=== PATIENT | female | born 1970 | race Hispanic/Latino ===

== ENCOUNTER → 2023-04-16 | Emergency (ER) | payer SELFPAY ==
[~2023-04-16] MED LIST: NA CHLORIDE 0.9% 1,000 ML ONE
[2023-04-16 15:40] LABS: Absolute Lymphocytes (CBC) 1.6 K/uL (0.7-4.9); Hematocrit 40.2 % (36.0-45.0); Lymphocytes % 23.1 % (15.3-44.8); MCV 93.7 fL (80-100); MPV 9.9 fL (7.6-11.3); Platelets 232 thou/uL (152-406); RBC Red Blood Cell Count 4.29 M/uL (3.86-4.86)
[2023-04-16 15:52] LABS: Potassium 4.1 mEq/L (3.5-5.1)
--- NOTE | 2023-04-16 15:55 | ER ---
Nurse's Notes [facility] Name: Mary Kate Herrera Age: 53 yrs Sex: Female : 1970 Arrival Date: 04/16/2023 Time: 14:35 Bed DX3 Private MD: Diagnosis: Diabetes mellitus due to underlying condition with hyperglycemia Presentation: 04/16 14:53 Chief complaint: Patient states: she was sent by the clinic for a FSBS of 405. patient ap3 denies any other symptoms at this time. patient was recently diagnosed with DM yesterday. Coronavirus screen: At this time, the client does not indicate any symptoms associated with coronavirus-19. Ebola Screen: No symptoms or risks identified at this time. Initial Sepsis Screen: Does the patient meet any 2 criteria? No. Patient's initial sepsis screen is negative. Does the patient have a suspected source of infection? No. Patient's initial sepsis screen is negative. Risk Assessment: Do you want to hurt yourself or someone else? Patient reports no desire to harm self or others. Onset of symptoms was April 16, 2023. 14:53 Method Of Arrival: Ambulatory ap3 14:53 Acuity: HEMA 3 ap3 Triage Assessment: 14:55 General: Appears in no apparent distress. Behavior is calm, cooperative, appropriate ap3 for age. Pain: Denies pain. Neuro: Level of Consciousness is awake, alert, obeys commands, Oriented to person, place, time, situation. Cardiovascular: Patient's skin is warm and dry. Respiratory: Airway is patent Respiratory effort is even, unlabored, Respiratory pattern is regular, symmetrical. 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 Flu vaccine is not up to date. - Social history:: Smoking status: Patient denies any tobacco usage or history of. Screenin:55 [facility] ED Fall Risk Assessment (Adult) History of falling in the last 3 months, ap3 including since admission No falls in past 3 months (0 pts). Abuse screen: Denies threats or abuse. Nutritional screening: No deficits noted. Tuberculosis screening: No symptoms or risk factors identified. Vital Signs: 14:53 BP 165 / 106; Pulse 78; Resp 17; Temp 97.7; Pulse Ox 100% ; Weight 96.16 kg; Height 5 ap3 ft. 1 in. ; 14:53 Body Mass Index 40.06 (96.16 kg, 154.94 cm) ap3 ED Course: 14:41 Patient arrived in ED. kj1 14:42 Donna Garnica [facility]C [facility]. kb 14:42 Austin Watters MD is Attending Physician. kb 14:54 Triage completed. ap3 14:55 Arm band placed on left wrist. ap3 15:23 Inserted saline lock: 20 gauge in left antecubital area, using aseptic technique. Blood as6 collected. 16:03 Bed in low position. Call light in reach. Provided Education on: follow up. as6 16:03 No provider procedures requiring assistance completed. IV discontinued, intact, as6 bleeding controlled, No redness/swelling at site. Pressure dressing applied. Administered Medications: 15:23 Drug: NS 0.9% IV 1000 ml IV at 1000 ml once Route: IV; Rate: 1000 ml; Site: left as6 antecubital; 16:02 Follow up: Response: No adverse reaction; IV Status: Completed infusion; IV Intake: as6 1000ml Medication: 16:03 VIS not applicable for this client. as6 Intake: 16:02 IV: 1000ml; Total: 1000ml. as6 Outcome: 15:55 Discharge ordered by . kb 16:03 Discharged to home ambulatory, as6 16:03 Condition: stable 16:03 Discharge instructions given to patient, Instructed on discharge instructions, follow up and referral plans. Demonstrated understanding of instructions, follow-up care, 16:03 Patient left the ED. as6 Signatures: Donna Garnica FNP-C FNP-Ckb Prokisch, Amanda RN RN ap3 Lynne Garnica kj1 Salomon Tejada RN RN as6
--- NOTE | 2023-04-16 15:55 | EDPHYS ---
Physician Documentation [facility] Name: Mary Kate Herrera Age: 53 yrs Sex: Female : 1970 Arrival Date: 04/16/2023 Time: 14:35 Bed DX3 Private MD: ED Physician Austin Watters HPI: 04/16 15:29 This 53 yrs old Female presents to ER via Ambulatory with complaints of High kb Blood Sugar. 15:29 Patient is a 53-year-old female who was diagnosed with diabetes yesterday at the [facility]. Her labs came back today with a sugar of 404 so she was told to come to the emergency room for evaluation. Patient reports slight lightheadedness but otherwise no other symptoms. Denies polyuria, polydipsia, polyphagia, nausea and vomiting. 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 Flu vaccine is not up to date. - Social history:: Smoking status: Patient denies any tobacco usage or history of. ROS: 15:29 Constitutional: Negative for fever, chills, and weight loss, kb 15:29 Neuro: Positive for lightheaded, 15:29 All other systems are negative, Exam: 15:29 Constitutional: This is a well developed, well nourished patient who is awake, alert, kb and in no acute distress. Head/Face: Normocephalic, atraumatic. ENT: Moist Mucous membranes Cardiovascular: Regular rate Respiratory: Respirations even and unlabored. No increased work of breathing. Talking in full sentences Abdomen/GI: Soft, non-tender. No distention Skin: Warm, dry with normal turgor. Normal color. MS/ Extremity: Pulses equal, no cyanosis. Neurovascular intact. Full, normal range of motion. Neuro: Awake and alert, GCS 15, oriented to person, place, time, and situation. Moves all extremities. Normal gait. Vital Signs: 14:53 BP 165 / 106; Pulse 78; Resp 17; Temp 97.7; Pulse Ox 100% ; Weight 96.16 kg; Height 5 ap3 ft. 1 in. ; 14:53 Body Mass Index 40.06 (96.16 kg, 154.94 cm) ap3 MDM: 14:42 Patient medically screened. kb 15:03 Data reviewed: vital signs, nurses notes. External Records Reviewed: Outpatient labs: kb CMP results from [facility] done yesterday reviewed. . 15:30 Differential diagnosis: DKA, hyperglycemia, new onset diabetes. kb 15:55 Counseling: I had a detailed discussion with the patient and/or guardian regarding the kb historical points, exam findings, and any diagnostic results supporting the discharge/admit diagnosis, lab results, the need for outpatient follow up, a family practitioner, to return to the emergency department if symptoms worsen or persist or if there are any questions or concerns that arise at home. 04/16 14:59 Order name: CBC with Diff; Complete Time: 15:46 kb 04/16 14:59 Order name: Basic Metabolic Panel; Complete Time: 15:53 kb 04/16 15:04 Order name: Glucose, Ancillary Testing; Complete Time: 15:05 EDMS 04/16 14:59 Order name: IV Start; Complete Time: 15:23 kb Administered Medications: 15:23 Drug: NS 0.9% IV 1000 ml IV at 1000 ml once Route: IV; Rate: 1000 ml; Site: left as6 antecubital; 16:02 Follow up: Response: No adverse reaction; IV Status: Completed infusion; IV Intake: as6 1000ml Disposition Summary: 04/16/23 15:55 Discharge Ordered Notes: Location: Home kb Condition: Stable kb Diagnosis - Diabetes mellitus due to underlying condition with hyperglycemia kb Followup: kb - With: Emergency Department - When: As needed - Reason: Worsening of condition Followup: kb - With: Private Physician - When: 2 - 3 days - Reason: Recheck today's complaints, Continuance of care, Re-evaluation by your physician Discharge Instructions: - Discharge Summary Sheet kb - Hyperglycemia kb - Type 2 Diabetes Mellitus, Diagnosis, Adult, [id number] kb Forms: - Medication Reconciliation Form kb - Thank You Letter kb - Antibiotic Education kb - Prescription Opioid Use kb - Patient Portal Instructions kb - Leadership Thank You Letter kb Signatures: Dispatcher [employer] EDDonna Jennings FNP-C [employer]-Ckb Nicci Ramires, RN RN ap3 Salomon Tejada, RN RN as6
== END ==
LOC: ER 14:35
DX: E11.65 Type 2 diabetes mellitus with hyperglycemia (principal); I10 Essential (primary) hypertension; Z28.310 Unvaccinated for COVID-19
CPT/HCPCS: 36415; 80048; 82947; 85025; J7030